=== PATIENT | female | born 1995 | race Caucasian/White ===

== ENCOUNTER 2023-02-26 12:50 | Outpatient (CLI) | payer OTHER ==
[~2023-02-26] VITALS: Ht 167.6 cm; Wt 130.9 kg
[2023-02-26 13:02] VITALS: BP 146/97
[2023-02-26 15:05] VITALS: BP 136/63
[2023-02-26 16:06] VITALS: BP 142/64
== END 2023-02-26 16:48 | disposition home or self-care (01) ==
LOC: M LDO 12:50
PROVIDERS: ATTEND Registered Nurse
DX: O26.893 Other specified pregnancy related conditions, third trimester (principal); Z3A.28 28 weeks gestation of pregnancy; O36.8130 Decreased fetal movements, third trimester, not applicable or unspecified; R10.9 Unspecified abdominal pain; O32.2XX0 Maternal care for transverse and oblique lie, not applicable or unspecified; O99.214 Obesity complicating childbirth; E66.9 Obesity, unspecified; R03.0 Elevated blood-pressure reading, without diagnosis of hypertension
CPT/HCPCS: 59025; 76705; 76815; 76820; G0463

== ENCOUNTER 2023-03-25 19:07 | Outpatient (CLI) | payer OTHER ==
[~2023-03-25] VITALS: Ht 167.6 cm; Wt 127.0 kg
[2023-03-25 19:15] VITALS: BP 129/60
[2023-03-25] MEDS ORDERED: PREN1TAB11 PO (19:23)
[2023-03-25] MEDS ORDERED: ECOT81TA5 PO (19:23)
[2023-03-25] MEDS ORDERED: metroNIDAZOLE (FLAGYL) 500MG TABLET PO SCH (21:00)
[2023-03-25] MEDS ORDERED: CYCLOBENZAPRINE 10MG TABLET PO ONE (21:25)
[2023-03-25 21:46] LABS: APPEARANCE, URINE HAZY (CLEAR); BACTERIA, URINE AUTO 1+ (NEGATIVE); BILIRUBIN, URINE AUTO NEGATIVE (NEGATIVE); BLOOD, URINE BLOOD NEGATIVE (NEGATIVE); COLOR, URINE YELLOW (YELLOW); GLUCOSE, URINE (UA) AUTO NEGATIVE (NEGATIVE); KETONE, URINE AUTO NEGATIVE (NEGATIVE); LEUKOCYTE ESTERASE, URINE AUTO TRACE (NEGATIVE); NITRITE, URINE AUTO NEGATIVE (NEGATIVE); PROTEIN, URINE AUTO NEGATIVE (NEGATIVE); RBC, URINE AUTO 0 /HPF (0-3); SPECIFIC GRAVITY URINE AUTO 1.014 (1.002-1.035); SQUAMOUS EPITHELIAL CELL UR AU 1 /HPF (0-6); UROBILINOGEN, URINE AUTO 0.2 mg/dL (0.0-2.0); WBC, URINE AUTO 1 /HPF (0-3)
[2023-03-25 23:21] LABS: GC DNA AMPLIFICATION NEGATIVE (NEGATIVE)
== END 2023-03-25 22:00 | disposition home or self-care (01) ==
LOC: M LDO 19:07
PROVIDERS: ATTEND Obstetrics & Gynecology
DX: O23.593 Infection of other part of genital tract in pregnancy, third trimester (principal); Z3A.32 32 weeks gestation of pregnancy; Z79.82 Long term (current) use of aspirin
CPT/HCPCS: 59025; 76815; 81001; 87081; 87810; 87850; G0463

== ENCOUNTER 2023-04-24 11:30 | Outpatient (CLI) | payer OTHER ==
[~2023-04-24] VITALS: Ht 167.6 cm; Wt 130.7 kg
[~2023-04-24 11:30] MED LIST: ECOT81TA5 PO; PREN1TAB11 PO
[2023-04-24 12:01] VITALS: BP 133/81
[2023-04-24] MEDS ORDERED: FLUCONAZOLE 50MG TABLET PO ONE (12:35)
[2023-04-24] MEDS ORDERED: ASPI81TA26 PO (12:40)
[2023-04-24] MEDS ORDERED: HUMU1INJ2 SC (12:40)
[2023-04-24 12:44] LABS: APPEARANCE, URINE HAZY (CLEAR); BACTERIA, URINE AUTO 1+ (NEGATIVE); BILIRUBIN, URINE AUTO NEGATIVE (NEGATIVE); BLOOD, URINE BLOOD NEGATIVE (NEGATIVE); COLOR, URINE YELLOW (YELLOW); GLUCOSE, URINE (UA) AUTO 1+ mg/dL (NEGATIVE); KETONE, URINE AUTO NEGATIVE (NEGATIVE); LEUKOCYTE ESTERASE, URINE AUTO 2+ (NEGATIVE); MUCUS, URINE SMALL (NEGATIVE); NITRITE, URINE AUTO NEGATIVE (NEGATIVE); PROTEIN, URINE AUTO 1+ mg/dL (NEGATIVE); RBC, URINE AUTO 1 /HPF (0-3); SPECIFIC GRAVITY URINE AUTO 1.025 (1.002-1.035); SQUAMOUS EPITHELIAL CELL UR AU 7 /HPF (0-6); UROBILINOGEN, URINE AUTO 0.2 mg/dL (0.0-2.0); WBC, URINE AUTO 5 /HPF (0-3)
[2023-04-24] MEDS ORDERED: HOME MED LIST COMPLETE! XX SCH (12:45)
[2023-04-24 15:01] LABS: GC DNA AMPLIFICATION NEGATIVE (NEGATIVE)
== END 2023-04-24 12:57 | disposition home or self-care (01) ==
LOC: M LDO 11:30
PROVIDERS: ATTEND Obstetrics & Gynecology
DX: O23.593 Infection of other part of genital tract in pregnancy, third trimester (principal); O26.853 Spotting complicating pregnancy, third trimester; O26.893 Other specified pregnancy related conditions, third trimester; M54.9 Dorsalgia, unspecified; O24.414 Gestational diabetes mellitus in pregnancy, insulin controlled; O34.219 Maternal care for unspecified type scar from previous cesarean delivery; Z3A.36 36 weeks gestation of pregnancy; Z88.1 Allergy status to other antibiotic agents; Z79.82 Long term (current) use of aspirin
CPT/HCPCS: 59025; 76815; 81001; 87661; 87810; 87850; G0463

== ENCOUNTER 2023-05-01 14:01 | Outpatient (CLI) | payer OTHER ==
[~2023-05-01] VITALS: Ht 167.6 cm; Wt 131.3 kg
[~2023-05-01 14:01] MED LIST changes: +ASPI81TA26 PO; +HUMU1INJ2 SC
[2023-05-01 14:19] VITALS: BP 140/78
[2023-05-01] MEDS ORDERED: FERR325T81 PO (14:26)
[2023-05-01] MEDS ORDERED: CALC500C16 PO (14:26)
[2023-05-01] MEDS ORDERED: HOME MED LIST COMPLETE! XX SCH (14:30)
[2023-05-01 14:35] VITALS: BP 129/63
[2023-05-01 14:50] VITALS: BP 117/73
== END 2023-05-01 15:23 | disposition home or self-care (01) ==
LOC: M LDO 14:01
PROVIDERS: ATTEND Advanced Practice Midwife
DX: O47.03 False labor before 37 completed weeks of gestation, third trimester (principal); O34.219 Maternal care for unspecified type scar from previous cesarean delivery; Z3A.37 37 weeks gestation of pregnancy; O23.593 Infection of other part of genital tract in pregnancy, third trimester; Z88.1 Allergy status to other antibiotic agents; Z79.82 Long term (current) use of aspirin; O24.414 Gestational diabetes mellitus in pregnancy, insulin controlled
CPT/HCPCS: 59025; 76815; G0463

== ENCOUNTER 2023-05-03 05:42 | Outpatient (CLI) | payer OTHER ==
[~2023-05-03] VITALS: Ht 167.6 cm; Wt 130.9 kg
[~2023-05-03 05:42] MED LIST changes: +CALC500C16 PO; +FERR325T81 PO
[2023-05-03 06:03] VITALS: BP 130/69
[2023-05-03] MEDS ORDERED: HOME MED LIST COMPLETE! XX SCH (06:10)
[2023-05-03 07:45] VITALS: BP 116/56
== END 2023-05-03 07:40 | disposition home or self-care (01) ==
LOC: M LDO 05:42
PROVIDERS: ATTEND Obstetrics & Gynecology
DX: O47.1 False labor at or after 37 completed weeks of gestation (principal); Z3A.38 38 weeks gestation of pregnancy; O34.219 Maternal care for unspecified type scar from previous cesarean delivery; O10.013 Pre-existing essential hypertension complicating pregnancy, third trimester; O24.414 Gestational diabetes mellitus in pregnancy, insulin controlled; Z88.1 Allergy status to other antibiotic agents; Z79.82 Long term (current) use of aspirin
CPT/HCPCS: 59025; G0463

== ENCOUNTER 2023-05-10 05:24 | Inpatient (IN) | payer OTHER ==
[2023-05-10] VITALS (9 sets, daily range): BP systolic 112–134; BP diastolic 53–76; TEMP 97.2; O2SAT 93–98
[~2023-05-10] VITALS: Ht 167.6 cm; Wt 131.1 kg
[2023-05-10] MEDS ORDERED: LACTATED RINGER'S 1000 ML IV STA (05:29)
[2023-05-10] MEDS ORDERED: BICITRA 30ML SOLN UDC PO ONE (05:30)
[2023-05-10] MEDS ORDERED: ceFAZolin SOD 3 GM IV Place Holder IV ONE (05:40)
[2023-05-10 06:17] LABS: HEMATOCRIT 36.8 % (36.0-47.0); HEMOGLOBIN 12.2 g/dl (12.0-15.5); MEAN CORPUSCULAR HEMOGLOBIN 29.5 pg (27.0-33.0); MEAN CORPUSCULAR HGB CONC 33.2 g/dl (32.0-36.5); MEAN CORPUSCULAR VOLUME 88.9 fl (80.0-96.0); PLATELET COUNT, AUTOMATED 382 10^3/uL (150-450); RED BLOOD COUNT 4.14 10^6/uL (4.00-5.40)
[2023-05-10] MEDS: LR 1,000 ML IV SCH ×2 (06:52→14:59)
[2023-05-10] MEDS ORDERED: MORPHINE PRES-FREE INJ 10 MG/10 ML VIAL As Ordered ONE (07:12)
[2023-05-10] MEDS ORDERED: KETOROLAC 60MG 2ML VIAL As Ordered ONE (07:13)
[2023-05-10] MEDS ORDERED: ONDANSETRON 4MG 2ML VIAL As Ordered ONE (07:13)
[2023-05-10] MEDS ORDERED: ACETAMINOPHEN 1000MG 100ML IV BAG As Ordered ONE (07:14)
[2023-05-10] MEDS ORDERED: OXYTOCIN 30UNITS IN 0.9% NaCl 500ML IV BAG As Ordered ONE ×2 (07:21→09:33)
[2023-05-10] MEDS ORDERED: AZITHROMYCIN INJ 500 MG, VIAL MATE ADAPTER 1 EACH in NS 250 ML IV ONE (08:00)
[2023-05-10] MEDS ORDERED: CLINDAMYCIN 900 MG in IV 1 EA IV ONE (08:00)
[2023-05-10] MEDS ORDERED: MIDAZOLAM INJ 2MG/2ML VIAL As Ordered ONE (08:55)
[2023-05-10] MEDS ORDERED: fentaNYL 100 MCG/2 ML INJECTION As Ordered ONE (08:57)
[2023-05-10] MEDS: DOCUSATE SODIUM 100MG CAPSULE PO SCH ×2 (09:00→20:58)
[2023-05-10] MEDS: PRENATAL VITAMINS CHEWABLE TABLET PO SCH (09:00)
[2023-05-10] MEDS ORDERED: GENTAMICIN 400 MG in D5W 100 ML IV ONE (09:00)
[2023-05-10 09:05] LABS: CORD GAS ABE V -2.5; CORD GAS HCO3 V 24.5 MMOL/L; CORD GAS PCO2 V 49.9 mmHg; CORD GAS PH V 7.309 UNITS; CORD GAS PO2 V 27.6 mmHg; CORD GAS SBC V 21.6 MMOL/L
[2023-05-10] MEDS ORDERED: METOCLOPRAMIDE INJ 10MG/2ML VIAL As Ordered ONE (09:06)
[2023-05-10 09:07] LABS: CORD GAS ABE A -1.3; CORD GAS HCO3 A 27.8 MMOL/L; CORD GAS O2 SAT A 37.3 %; CORD GAS PH A 7.255 UNITS; CORD GAS PO2 A 18.4 mmHg; CORD GAS SBC A 21.8 MMOL/L; CORD GAS TCO2 A 29.7 MMOL/L
[2023-05-10] MEDS ORDERED: ePHEDrine SULFATE 25 MG/5 ML(5MG/ML) SYRINGE As Ordered ONE (09:19)
[2023-05-10] MEDS ORDERED: MEPERIDINE 25 MG/ML 1ML VIAL IV PRN (09:30)
[2023-05-10] MEDS: SLF 3 ML SYR IV SCH ×2 (09:30→15:00)
[2023-05-10] MEDS ORDERED: METOCLOPRAMIDE INJ 10MG/2ML VIAL IV PRN ×2 (09:30→09:50)
[2023-05-10] MEDS ORDERED: NALOXONE INJ 0.4MG/1ML VIAL IV PRN ×2 (09:30)
[2023-05-10] MEDS ORDERED: **NOTE PATIENT COMMENT** MISC XX SCH (09:30)
[2023-05-10] MEDS ORDERED: fentaNYL 100 MCG/2 ML INJECTION IV PRN (09:30)
[2023-05-10] MEDS ORDERED: oxyCODONE 5MG TAB PO PRN ×3 (09:30→09:50)
[2023-05-10] MEDS ORDERED: diphenhydrAMINE 50MG/ML VIAL IV PRN (09:30)
[2023-05-10] MEDS ORDERED: HYDROMORPHONE HCL 0.5 MG/ 0.5 ML SYRINGE IV PRN (09:30)
[2023-05-10] MEDS ORDERED: ONDANSETRON 4MG 2ML VIAL IV PRN ×2 (09:30→09:50)
[2023-05-10] MEDS ORDERED: METHYLERGONOVINE MALEATE 0.2MG/ML 1ML VIAL IM PRN (09:50)
[2023-05-10] MEDS ORDERED: RHOGAM 300MCG (1500IU) INJ IM SCH (09:50)
[2023-05-10] MEDS ORDERED: LR 1,000 ML IV SCH (09:50)
[2023-05-10] MEDS: ACETAMINOPHEN 500 MG TAB PO SCH ×2 (15:00→21:00)
[2023-05-10] MEDS: KETOROLAC 30 MG/ML 1ML VIAL IV SCH ×2 (15:00→21:02)
[2023-05-10] MEDS: SIMETHICONE 80MG CHEW TAB PO PRN (21:05)
[2023-05-11 02:00] VITALS: BP 123/58; O2SAT 97
[2023-05-11] MEDS: ACETAMINOPHEN 500 MG TAB PO SCH ×4 (03:42→20:45)
[2023-05-11] MEDS: KETOROLAC 30 MG/ML 1ML VIAL IV SCH (03:44)
[2023-05-11] MEDS: SLF 3 ML SYR IV SCH (03:46)
[2023-05-11 06:00] VITALS: BP 125/59; O2SAT 97
[2023-05-11 07:23] LABS: HEMATOCRIT 30.5 % (36.0-47.0); MEAN CORPUSCULAR HEMOGLOBIN 29.6 pg (27.0-33.0); MEAN CORPUSCULAR HGB CONC 32.5 g/dl (32.0-36.5); PLATELET COUNT, AUTOMATED 348 10^3/uL (150-450); RED BLOOD COUNT 3.35 10^6/uL (4.00-5.40); WHITE BLOOD COUNT 13.1 10^3/uL (4.0-10.0)
[2023-05-11 07:24] LABS: HEMOGLOBIN 9.9 g/dl (12.0-15.5)
[2023-05-11] MEDS: PRENATAL VITAMINS CHEWABLE TABLET PO SCH (09:33)
[2023-05-11] MEDS: DOCUSATE SODIUM 100MG CAPSULE PO SCH ×2 (09:33→20:42)
[2023-05-11 10:00] VITALS: BP 129/74; O2SAT 100
[2023-05-11] MEDS: IBUPROFEN 800 MG TAB PO SCH ×2 (11:40→18:34)
[2023-05-11 14:00] VITALS: BP 132/73; O2SAT 97
[2023-05-11 18:00] VITALS: BP 133/67; O2SAT 98
[2023-05-11] MEDS: SIMETHICONE 80MG CHEW TAB PO PRN (20:42)
[2023-05-11 22:00] VITALS: BP 112/54; O2SAT 97
[2023-05-12 02:00] VITALS: BP 133/66; O2SAT 100
[2023-05-12] MEDS: IBUPROFEN 800 MG TAB PO SCH ×2 (03:59→11:38)
[2023-05-12] MEDS: ACETAMINOPHEN 500 MG TAB PO SCH ×2 (04:02→09:07)
[2023-05-12 06:00] VITALS: BP 133/64; O2SAT 99
[2023-05-12] MEDS ORDERED: MEASLES,MUMPS,RUBELLA VACCINE INJ (MMR-II) SC.IMMUN ONE (09:00)
[2023-05-12] MEDS: DOCUSATE SODIUM 100MG CAPSULE PO SCH (09:06)
[2023-05-12] MEDS: PRENATAL VITAMINS CHEWABLE TABLET PO SCH (09:06)
== END 2023-05-12 11:45 | disposition home or self-care (01) | DRG 785 ==
LOC: M LDI 05:24 → M OBS 11:00
PROVIDERS: ADMIT Obstetrics & Gynecology; ATTEND Obstetrics & Gynecology
PROC: 10D00Z1 Extraction of Products of Conception, Low, Open Approach (ICD-10-PCS; principal; 2023-05-10 07:30)
PROC: 0UT70ZZ Resection of Bilateral Fallopian Tubes, Open Approach (ICD-10-PCS; 2023-05-10 07:30)
DX: O34.211 Maternal care for low transverse scar from previous cesarean delivery (principal); O24.429 Gestational diabetes mellitus in childbirth, unspecified control; O99.214 Obesity complicating childbirth; E66.9 Obesity, unspecified; Z37.0 Single live birth; O99.72 Diseases of the skin and subcutaneous tissue complicating childbirth; L73.2 Hidradenitis suppurativa; Z3A.39 39 weeks gestation of pregnancy; Z30.2 Encounter for sterilization

== ENCOUNTER 2023-06-30 06:10 | Emergency (ER) | payer OTHER ==
[~2023-06-30] VITALS: Ht 167.6 cm; Wt 129.7 kg
[2023-06-30] VITALS (12 sets, daily range): BP systolic 106–130; BP diastolic 54–73; TEMP 97.4–97.5; O2SAT 12–98
[2023-06-30] MEDS ORDERED: ISOVUE-370 76% 100ML VIAL As Ordered ONE (06:42)
[2023-06-30] MEDS ORDERED: ASPIRIN 81MG CHEW TABLET PO ONE (06:55)
[2023-06-30 07:08] LABS: BASO # 0.1 10^3/uL (0.0-0.2); BASO % 0.7 % (0.0-1.0); EOS # 0.2 10^3/uL (0.0-0.5); EOS % 2.3 % (0.0-3.0); HEMATOCRIT 35.9 % (36.0-47.0); HEMOGLOBIN 11.1 g/dl (12.0-15.5); LYMPH # 2.4 10^3/uL (1.5-5.0); LYMPH % 27.7 % (24.0-44.0); MEAN CORPUSCULAR HEMOGLOBIN 27.3 pg (27.0-33.0); MEAN CORPUSCULAR HGB CONC 30.9 g/dl (32.0-36.5); MEAN CORPUSCULAR VOLUME 88.4 fl (80.0-96.0); MONO # 0.7 10^3/uL (0.0-0.8); MONO % 7.7 % (2.0-8.0); NEUTROPHILS # 5.3 10^3/uL (1.5-8.5); NEUTROPHILS % 61.4 % (36.0-66.0); PLATELET COUNT, AUTOMATED 490 10^3/uL (150-450); RED BLOOD COUNT 4.06 10^6/uL (4.00-5.40); WHITE BLOOD COUNT 8.6 10^3/uL (4.0-10.0)
[2023-06-30 07:25] LABS: CK-MB VALUE MASS < 1.0 NG/ML (<3.6)
[2023-06-30 07:26] LABS: BLOOD UREA NITROGEN 11 MG/DL (9-23); CALCIUM LEVEL 9.1 MG/DL (8.5-10.1); CARBON DIOXIDE LEVEL 26 MMOL/L (20-31); CHLORIDE LEVEL 108 MMOL/L (98-107); CPK CREATINE PHOSPHOKINASE 110 U/L (34-145); CREATININE FOR GFR 0.63 MG/DL (0.55-1.30); GLOMERULAR FILTRATION RATE > 60.0 (>60); GLUCOSE, FASTING 104 MG/DL (60-100); POTASSIUM SERUM 4.1 MMOL/L (3.5-5.1); SODIUM LEVEL 143 MMOL/L (136-145)
[2023-06-30 07:38] LABS: RSV AMPLIFICATION NEGATIVE (NEGATIVE)
[2023-06-30 07:50] LABS: INR 1.08; PROTHROMBIN TIME 13.7 SECONDS (12.5-14.5)
[2023-06-30] MEDS ORDERED: METOCLOPRAMIDE INJ 10MG/2ML VIAL IV ONE (08:30)
[2023-06-30] MEDS ORDERED: ACETAMINOPHEN *IV* 1,000 MG in IV 1 EA IV ONE (08:30)
[2023-06-30] MEDS ORDERED: MORPHINE 2 MG/ML 1ML VIAL IV ONE (08:30)
[2023-06-30] MEDS ORDERED: ONDANSETRON 4MG 2ML VIAL As Ordered ONE (09:29)
[2023-06-30] MEDS ORDERED: ONDANSETRON 4MG 2ML VIAL IV ONE (09:30)
[2023-06-30] MEDS ORDERED: NS 1,000 ML IV ONE (17:25)
== END 2023-06-30 18:31 | disposition short-term general hospital (02) ==
LOC: M ED 06:10
DX: I77.74 Dissection of vertebral artery (principal); G43.909 Migraine, unspecified, not intractable, without status migrainosus; Z88.1 Allergy status to other antibiotic agents; Z79.899 Other long term (current) drug therapy
CPT/HCPCS: 70450; 70496; 70498; 70544; 70551; 71045; 72125; 80047; 80048; 82550; 82553; 84484; 85025; 85610; 85730; 87631; 93041; 94760; 96374; 96375; 99285; J0131; J2405; J2765; Q9967

== ENCOUNTER 2024-08-26 07:00 | Emergency (ER) | payer OTHER ==
[~2024-08-26] VITALS: Ht 167.6 cm; Wt 128.9 kg
[2024-08-26] MEDS: NS 1,000 ML IV ONE (07:40)
[2024-08-26] MEDS ORDERED: SEMA0.252 (07:42)
[2024-08-26] MEDS ORDERED: GABA-1171 (07:42)
[2024-08-26] MEDS ORDERED: FREM225A (07:42)
[2024-08-26] MEDS ORDERED: RIME75TA (07:42)
[2024-08-26] MEDS ORDERED: D 50CAP2 (07:42)
[2024-08-26] MEDS ORDERED: ADAL80PE4 (07:42)
[2024-08-26] MEDS ORDERED: VERA80TA3 (07:42)
[2024-08-26] MEDS: KETOROLAC 30 MG/ML 1ML VIAL IV ONE (07:59)
[2024-08-26] MEDS: METOCLOPRAMIDE INJ 10MG/2ML VIAL IV ONE (07:59)
[2024-08-26] MEDS: diphenhydrAMINE 50MG/ML VIAL IV ONE (07:59)
[2024-08-26 10:34] VITALS: BP 139/75; TEMP 98.2; O2SAT 97
== END 2024-08-26 10:38 | disposition home or self-care (01) ==
LOC: M ED 07:00 → EDBD 07:00 → M ED 10:38
DX: G43.909 Migraine, unspecified, not intractable, without status migrainosus (principal); J45.909 Unspecified asthma, uncomplicated; Z88.1 Allergy status to other antibiotic agents
CPT/HCPCS: 96361; 96374; 96375; 99284; J1100; J1200; J1885; J2765